=== PATIENT | female | born 1985 | race Caucasian/White ===

== ENCOUNTER 2021-02-12 13:30 | Emergency (ER) | payer BC ==
[2021-02-12] MEDS ORDERED: LORazepam 2 MG/ML SDV IVPUSH ONE (13:42)
[2021-02-12] MEDS ORDERED: Metoclopramide 10 MG/2 ML SDV IVPUSH ONE (13:42)
[2021-02-12] MEDS ORDERED: HYDROmorphone 0.5 MG/0.5 ML Syringe IVPUSH ONE (13:42)
[2021-02-12] MEDS ORDERED: Dextrose 5%-0.9% NaCl 1,000 ML IV SCH (13:45)
--- NOTE | 2021-02-12 13:45 | EDM.PDOC ---
ED HPI GENERAL MEDICAL PROBLEM - General Chief Complaint: Chest Pain Stated Complaint: [facility] Time Seen by Provider: 02/12/21 13:43 Source of Information: Reports: Patient, EMS History Limitations: Reports: No Limitations - History of Present Illness INITIAL COMMENTS - FREE TEXT/NARRATIVE: 35-year-old female presents to the ED per [facility] complaining of sudden onset of severe sharp stabbing pain in her left precordial chest rating through to her back and up into her left shoulder. Associated dyspnea and panic. She indicates that she suffers from generalized anxiety disorder and this has been aggravated lately by constant fighting with her who is considering divorce. Patient claims that she has a hole in her heart that cannot be repaired surgically and most likely does not need to be repaired surgically. There is some question as to whether or not she has a diathesis for blood clotting in her family. She herself has never had DVT or PE. O2 sats are 100% on room air. Patient appears to be quite anxious. She is very thin and heavily tanned. Paramedics did establish an IV but she did not receive any the medications. She was given aspirin 324 mg chewed Onset: Today, Sudden Onset Date: 02/12/21 Onset Time: 12:55 Duration: Minutes: Location: Reports: Chest Quality: Reports: Ache (Left upper anterior chest pain which is sharp stabbing rating towards the left shoulder.), Pressure, Stabbing Severity: Severe (Gregg stabbing 9 out of 10) Improves with: Reports: Rest Worsens with: Reports: Other Context: Reports: Other (New onset while at home). Denies: Activity, Exercise (Made slightly worse by deep breathing.), Lifting, Sick Contact, Trauma Associated Symptoms: Reports: Chest Pain, Cough, cough w sputum (Cough usually in the mornings from cigarette smoking.), Loss of Appetite, Malaise, Nausea/Vomiting (Nausea without vomiting), Shortness of Breath, Weakness. Denies: Confusion, Diaphoresis, Fever/Chills ( Brownish sputum occasionally), Headaches, Rash, Seizure, Syncope Treatments BELT WEAVER: Reports: Aspirin Other Treatments BELT WEAVER: 324mg aspirin given by EMS Left Chest Pain Score (Numeric/FACES): 8 - Related Data Allergies Allergy/AdvReac Type Severity Reaction Status Date / Time No Known Allergies Allergy Verified 02/12/21 13:41 Home Meds: Home Meds . [No Known Home Meds] 02/12/21 [History] Past Medical History Cardiovascular History: Reports: Other (See Below) (Says she has a hole in her heart presumably a small atrial septal defect that apparently does not need to be repaired surgically.) Psychiatric History: Reports: Anxiety (Relies anxiety disorder with panic attacks) Social & Family History - Tobacco Use Tobacco Use Status *Q: Current Every Day Tobacco User Tobacco Use Within Last Twelve Months: Cigarettes (1 pack/day) ED ROS GENERAL - Review of Systems Review Of Systems: See Below Constitutional: Reports: Decreased Appetite. Denies: Fever, Chills, Malaise, Weakness, Fatigue, Weight Loss HEENT: Reports: No Symptoms Respiratory: Reports: Shortness of Breath, Cough, Sputum (Smoker's cough.). Denies: Wheezing, Pleuritic Chest Pain, Hemoptysis ( Occasional sputum production) Cardiovascular: Reports: Chest Pain. Denies: Blood Pressure Problem (History of present illness), Claudication, Dyspnea on Exertion, Edema, Lightheadedness, Orthopnea, Palpitations Endocrine: Reports: Fatigue GI/Abdominal: Reports: No Symptoms : Reports: No Symptoms Musculoskeletal: Reports: No Symptoms Skin: Reports: No Symptoms Neurological: Reports: Dizziness, Weakness. Denies: Confusion, Headache, Numbness, Paresthesia, Pre-Existing Deficit, Seizure, Syncope, Tingling, Tremors, Trouble Speaking, Difficulty Walking, Change in Speech, Gait Disturbance Psychiatric: Reports: Anxiety Hematologic/Lymphatic: Reports: No Symptoms Immunologic: Reports: No Symptoms ED EXAM, GENERAL - Physical Exam Exam: See Below Exam Limited By: No Limitations General Appearance: Alert, WD/WN, Anxious, Mild Distress, Other (Temperature is 36.1 degrees. Heart rate is 95 and sinus. Respiratory to 16. Blood pressure 111/68. O2 sats 96 to 100% room air.) Eye Exam: Bilateral Eye: Normal Inspection (No blepharal pallor or scleral icterus.), PERRL Throat/Mouth: Normal Inspection, Other (Oropharynx is diffusely erythematous from cigarette smoking.). No: Normal Teeth Head: Atraumatic, Normocephalic Neck: Normal Inspection, Supple, Non-Tender, Full Range of Motion. No: Carotid Bruit, Lymphadenopathy (L), Lymphadenopathy (R) Respiratory/Chest: No Respiratory Distress, Lungs Clear, Normal Breath Sounds, No Accessory Muscle Use, Other (Mild chest wall tenderness on palpation of ribs). No: Respiratory Distress Cardiovascular: Normal Peripheral Pulses ( 3 4 and 5 left midclavicular line), Regular Rate, Rhythm, No Edema, No Gallop, No Murmur, No Rub Peripheral Pulses: 3+: Carotid (L), Carotid (R), Posterior Tibial (L), Posterior Tibial (R), Dorsalis Pedis (L), Dorsalis Pedis (R) GI/Abdominal: Normal Bowel Sounds, Soft, Non-Tender, No Organomegaly, No Abnormal Bruit, No Mass, Pelvis Stable Back Exam: Normal Inspection, Full Range of Motion. No: CVA Tenderness (L), CVA Tenderness (R) Extremities: Normal Inspection, Normal Range of Motion, Non-Tender, No Pedal E anahi, Other (Feet are excoriated in multiple areas over her dorsal toes and ankles and dorsal feet. She states has been working out in the garden barefoot. The feet are very dirty.) Neurological: Alert, Oriented, CN II-XII Intact, Normal Cognition Psychiatric: Anxious (Moderate Tremaine anxious) Skin Exam: Warm, Dry, Intact, Normal Color, No Rash #1 Interpretation EKG Date: 02/12/21 Time: 13:56 Rhythm: NSR Rate (Beats/Min): 76 [place]: Normal P-Wave: Enlarged QRS: Other (Sitter left atrial hypertrophy decreased voltage limb leads . There is Q-wave in V1 and near Q-wave in V2 and V3 combined with old anteroseptal myocardial infarction. There is also a Q-wave in aVL which is nonspecific.) ST-T: Other (Decreased voltage limb leads. Diffuse early repolarization pattern) QT: Normal EKG Interpretation Comments: Abnormal ECG Course - Vital Signs Last Recorded V/S: Last Vital Signs Temp 36.1 C 02/12/21 13:33 Pulse 95 02/12/21 13:33 Resp 16 02/12/21 13:33 BP 111/68 02/12/21 13:33 Pulse Ox 96 02/12/21 13:33 - Orders/Labs/Meds Orders: Active Orders 24 hr Category Date Time Status EKG Documentation Completion [RC] STAT Care 02/12/21 13:43 Active DRUG SCREEN, URINE [URCHEM] Stat Lab 02/12/21 13:55 Ordered URINALYSIS W/MICROSCOPIC [UA W/MICROSCOPIC] [URIN] Stat Lab 02/12/21 13:55 Ordered Dextrose 5%-0.9% NaCl [Dextrose 5%-Normal Saline] 1,000 Med 02/12/21 13:45 Active ml IV ASDIRECTED Medication Orders Dextrose/Sodium Chloride (Dextrose 5%-Normal Saline) 1,000 mls @ 150 mls/hr IV ASDIRECTED CLARY Last Admin: 02/12/21 14:13 Dose: 150 mls/hr Documented by: [email or web address] Labs: Laboratory Tests 02/12/21 02/12/21 02/12/21 Range/Units 14:12 14:12 14:12 WBC 5.87 (3.98-10.04) K/mm3 RBC 4.06 (3.98-5.22) M/mm3 Hgb 12.6 (11.2-15.7) gm/dl Hct 37.8 (34.1-44.9) % MCV 93.1 (79.4-94.8) fl MCH 31.0 (25.6-32.2) pg MCHC 33.3 (32.2-35.5) g/dl RDW Std Deviation 42.9 (36.4-46.3) fL Plt Count 377 H (182-369) K/mm3 MPV 8.6 L (9.4-12.3) fl Neut % (Auto) 55.3 (34.0-71.1) % Lymph % (Auto) 29.0 (19.3-51.7) % [place] % (Auto) 11.1 (4.7-12.5) % Eos % (Auto) 3.4 (0.7-5.8) Baso % (Auto) 0.9 (0.1-1.2) % Neut # (Auto) 3.25 (1.56-6.13) K/mm3 Lymph # (Auto) 1.70 (1.18-3.74) K/mm3 [place] # (Auto) 0.65 H (0.24-0.36) K/mm3 Eos # (Auto) 0.20 (0.04-0.36) K/mm3 Baso # (Auto) 0.05 (0.01-0.08) K/mm3 PT 10.3 (9.7-12.0) SECONDS INR 0.96 APTT 26.8 (21.7-31.4) SECONDS Sodium 144 (136-145) mEq/L Potassium 3.7 (3.5-5.1) mEq/L Chloride 110 H (98-107) mEq/L Carbon Dioxide 25 (21-32) mEq/L Anion Gap 12.7 (5-15) BUN 14 (7-18) mg/dL Creatinine 0.9 (0.55-1.02) mg/dL Est Cr Clr Drug Dosing 63.26 mL/min Estimated GFR (MDRD) > 60 (>60) mL/min BUN/Creatinine Ratio 15.6 (14-18) Glucose 138 H (70-99) mg/dL Calcium 8.3 L (8.5-10.1) mg/dL Magnesium 2.1 (1.8-2.4) mg/dL Total Bilirubin 0.4 (0.2-1.0) mg/dL AST 13 L (15-37) U/L ALT 18 (14-59) U/L Alkaline Phosphatase 55 (46-116) U/L CK-MB (CK-2) 1.7 (0-3.6) ng/ml Troponin I < 0.017 (0.00-0.056) ng/mL C-Reactive Protein 0.2 (<1.0) mg/dL Total Protein 6.1 L (6.4-8.2) g/dl Albumin 3.3 L (3.4-5.0) g/dl Globulin 2.8 gm/dL Albumin/Globulin Ratio 1.2 (1-2) Ethyl Alcohol 0.00 (0.00) gm% Meds: Medications Generic Name Dose Route Start Last Admin Trade Name Freq PRN Reason Stop Dose Admin Dextrose/Sodium Chloride 1,000 mls @ 150 mls/hr 02/12/21 13:45 02/12/21 14:13 Dextrose 5%-Normal Saline IV 150 mls/hr ASDIRECTED CLARY Administration Discontinued Medications Generic Name Dose Route Start Last Admin Trade Name Freq PRN Reason Stop Dose Admin Hydromorphone HCl 0.5 mg 02/12/21 13:42 02/12/21 14:13 Hydromorphone 0.5 Mg/0.5 Ml Syringe IVPUSH 02/12/21 13:43 0.5 mg ONETIME ONE Administration Lorazepam 0.5 mg 02/12/21 13:42 02/12/21 14:18 Lorazepam 2 Mg/Ml Sdv IVPUSH 02/12/21 13:43 0.5 mg ONETIME ONE Administration Metoclopramide HCl 5 mg 02/12/21 13:42 02/12/21 14:14 Metoclopramide 10 Mg/2 Ml Sdv IVPUSH 02/12/21 13:43 5 mg ONETIME ONE Administration - Radiology Interpretation Free Text/Narrative:: 35-year-old female presents to the ED per [facility] complaining of sudden onset of severe sharp stabbing pain in her left anterior chest rating up into her left shoulder. She identifies that she has a problem with generalized anxiety disorder with panic attacks. She indicates her anxiety level has been higher lately since she has been fighting with her on a daily basis and he is considering her mentioning divorce. She is a smoker a pack per day. She states she has a hole in her heart which is unclear and unverified for which there is no treatment. Sounds like she may have a small ASD that does not need to be repaired. She has no history of clotting disorder. Examination reveals good air entry throughout all lung wilson. O2 sats 100% on room air. She appears extremely anxious. Paramedics did administer 324 mg of aspirin chewed. Plan IV will be D5 normal saline at 150 mils per hour. Given Dilaudid 0.5 mg IV with Reglan 5 mg IV and Ativan 1 mg IV. Chest x-ray ECG and routine labs to include cardiac markers to be done. - Re-Assessments/Exams Free Text/Narrative Re-Assessment/Exam: 02/12/21 14:15 chest x-ray done portably reveals slightly hyperinflated lung wilson. Cardiac silhouette is normal. There is no pneumothorax or pleural effusion. Lung parenchyma are clear. ECG is suggestive of an old anteroseptal myocardial infarction and patient does verify that she has a history of previous methamphetamine use. 02/12/21 14:59 White count is normal at 5.87. Differential shows 55% neutrophils on the auto differential. Hemoglobin is 12.6 with hematocrit of 37.8 MCV is normal at 93.1. Platelet count 377,000 slightly elevated. PT is 10.3 with an INR of 0.96 PTT is 26.8. 02/12/21 15:05 she reports that she is feeling much improved. Pain is pretty well gone. She is able to take a deep breath now without significant pain. Still awaiting the rest of her labs i.e. chemistry and troponin. 02/12/21 15:26 Sodium is 144 with a potassium of 3.7. Chloride is slightly elevated at 110. Bicarb 25 with an anion gap of 12.7. BUN is 14 with a creatinine of 0.9 and a GFR greater than 60. Glucose is 138. Calcium 8.3 slightly low. Magnesium normal at 2.1. Liver function is normal. CK-MB is 1.7 and troponin is less than 0.017. C-reactive protein is 0.2. Total protein 6.1 with a slightly low albumin fraction of 3.3. Blood alcohol is 0.00. Chemistry is normal. Patient is feeling improved and therefore will be discharged home. Departure - Departure Time of Disposition: 15:26 Disposition: Home, Self-Care 01 Reason for Transfer *Q: Other Condition: Fair Clinical Impression: Non-cardiac chest pain, Pleuritic chest pain, Anxiety Instructions: Pleurodynia Forms: ED Department Discharge Additional Instructions: Evaluation in the emergency room today in regards to development of sudden onset of severe left sided chest pain rating up into the left shoulder. You were brought to the emergency room for evaluation by a local ambulance service. Chest x-ray was within normal limits showing no evidence of any pneumothorax or hole in the lung with an air leak. No signs of pneumonia or infection. Heart size and shape are normal. Lab work reveals no evidence of heart related illness. No signs of infection. Chest pain can be from spasm of muscles between ribs which is sharp and stabbing. It can be caused by severe anxiety. It can be caused by a low-grade viral inflammation of the lung lining called pleurodynia. All serious disease processes were ruled out today. Chest pain may recur but will usually be less severe. It is okay to use Motrin 600 mg or Aleve 2 tablets every 8 hours for pain relief as needed. Sepsis Event Note (ED) - Evaluation Sepsis Screening Result: No Definite Risk - Focused Exam Vital Signs: Vital Signs Temp Pulse Resp BP Pulse Ox 02/12/21 13:33 36.1 C 95 16 111/68 96 - My Orders Last 24 Hours: My Active Orders 02/12/21 13:43 EKG Documentation Completion [RC] STAT 02/12/21 13:45 Dextrose 5%-0.9% NaCl [Dextrose 5%-Normal Saline] 1,000 ml IV ASDIRECTED 02/12/21 13:55 DRUG SCREEN, URINE [URCHEM] Stat URINALYSIS W/MICROSCOPIC [UA W/MICROSCOPIC] [URIN] Stat - Assessment/Plan Last 24 Hours: My Active Orders 02/12/21 13:43 EKG Documentation Completion [RC] STAT 02/12/21 13:45 Dextrose 5%-0.9% NaCl [Dextrose 5%-Normal Saline] 1,000 ml IV ASDIRECTED 02/12/21 13:55 DRUG SCREEN, URINE [URCHEM] Stat URINALYSIS W/MICROSCOPIC [UA W/MICROSCOPIC] [URIN] Stat
--- NOTE | 2021-02-12 14:39 | CR ---
Chest: Portable view of the chest was obtained. Comparison: No prior chest imaging is available. Heart size and mediastinum are normal. Lungs are clear with no acute parenchymal change. Bony structures show minimal scoliosis within the spine. Impression: 1. Nothing acute is seen. Diagnostic code #2
== END 2021-02-12 15:35 | disposition home or self-care (01) ==
LOC: JD.ED 13:30
DX: R07.2 Precordial pain (principal); R07.81 Pleurodynia; F41.9 Anxiety disorder, unspecified; Z72.0 Tobacco use
CPT/HCPCS: 36415; 71045; 80053; 80306; 80307; 81001; 82553; 83735; 84484; 85025; 85610; 85730; 86140; 93005; 96374; 96375; 99285; J1170; J2060; J2765; J7042; 93010; 99284

== ENCOUNTER 2021-07-28 04:40 | Emergency (ER) | payer BC ==
--- NOTE | 2021-07-28 05:07 | EDM.PDOC ---
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 Hardin is a 36-year-old woman who now presents the ED stating that she is approximately 6 weeks gestation, , LMP some time in February 2021, s/p one OB sound on 07/22/2021 that reads: 1. Single intrauterine fetus currently cephalic in presentation dates as noted above. (15w 3d, CHRISSY 01/16/2022) 2. Fibroids within the uterus are noted. 2 largest fibroids are measured above. 3. Complete placenta previa is noted. The ultrasound places the patient at 16w 3d today. She states that she has been experiencing crampy right pelvic pain on and off for the past 2 days, but constant since 01:00 this morning. No recent spotting or bleeding. She has taken OTC acetaminophen, which has not really helped. No prior similar pain with this . At triage, the patient was found to be hemodynamically stable, afebrile, saturating 99% on room air. She appears to be comfortable, in no acute distress. The patient states that she has been experiencing constipation with this , otherwise, the patient denies having a recent fever, chills, sore throat, ear pain, nasal or sinus congestion, cough, dyspnea, chest pain, palpitations, nausea, vomiting, diarrhea, abdominal pain, urinary symptoms, recent weight gain or weight loss, recent bloody bowel movements or black bowel movements, recent joint aches, headaches, or rashes. The patient's PCP is Deja Avalos NP. Her CUT AND COVER LINE WORKER is Dr. Mckenzie Santa. Her Bricklayer Apprentice/Oncologist is Dr. Nathaniel Belcher. Her Biologist Aide is Dr. Wai Brush. She does not recall the name of her Director Recreation, at [facility]. She does not recall the name of her Neurologist, at [facility]. She has not received a COVID vaccination, nor an influenza vaccination this season. 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: Fibroids : 1 Para: 0 Psychiatric History: Reports: Anxiety (untreated), Panic Attack - Infectious Disease History Infectious Disease History: Reports: Novel Coronavirus (dx'd Feb 2020) - Past Surgical History HEENT Surgical History: Reports: Oral Surgery (dental extractions) Social & Family History - Tobacco Use Tobacco Use Status *Q: Current Every Day Tobacco User Years of Tobacco use: 23 Packs/Tins Daily: 0.5 Packs/Tins Daily Comment: Down from 3 ppd Tobacco Use Comment: Started smoking 1998 - Caffeine Use Caffeine Use: Reports: None - Alcohol Use Alcohol Use History: No - Recreational Drug Use Recreational Drug Use: Yes Drug Use in Last 12 Months: Yes Recreational Drug Type: Reports: Marijuana/Hashish (last smoked around January 2021), Methamphetamine (last smoked 2019) - Living Situation & Occupation Living situation: Reports: , with Spouse Occupation: Unemployed ED ROS GENERAL - Review of Systems Review Of Systems: Comprehensive ROS is negative, except as noted in HPI. ED EXAM - Physical Exam Exam: See Below Exam Limited By: No Limitations General Appearance: Alert, WD/WN, No Apparent Distress Eye Exam: Bilateral Eye: EOMI, Normal Inspection Ears: Normal External Exam, Hearing Grossly Normal Nose: Normal Inspection Throat/Mouth: Normal Inspection, Normal Lips, Normal Voice, No Airway Compromise Head: Atraumatic, Normocephalic Neck: Normal Inspection, Full Range of Motion Respiratory/Chest: No Respiratory Distress, Lungs Clear, Normal Breath Sounds, No Accessory Muscle Use Cardiovascular: Normal Peripheral Pulses, Regular Rate, Rhythm, No Edema, No Gallop, No JVD, No Murmur, No Rub GI/Abdominal Exam: Normal Bowel Sounds, Soft, Non-Tender (including the RLQ/right pelvis), No Distention, No Abnormal Bruit, No Mass, Other (Gravid uterus consistent with dates) Back Exam: Normal Inspection, Full Range of Motion, NT Extremities: Normal Inspection, Normal Range of Motion, No Pedal Edema, Normal Capillary Refill Neurological: Alert, Oriented, Normal Cognition, No Motor/Sensory Deficits Psychiatric: Normal Affect Skin Exam: Warm, Dry, Intact, Normal Color, No Rash Course - Vital Signs Last Recorded V/S: Last Vital Signs Temp 36.4 C 07/28/21 04:49 Pulse 91 07/28/21 04:49 Resp 15 07/28/21 04:49 BP 111/67 07/28/21 04:49 Pulse Ox 99 07/28/21 04:49 - Orders/Labs/Meds Orders: Active Orders 24 hr Category Date Time Status OB Ltd 1 or More Fetus [US] Stat Exams 07/28/21 05:03 Taken Labs: Laboratory Tests 07/28/21 07/28/21 Range/Units 04:55 05:19 HCG, Quant 61735.0 mIU/mL Urine Color Yellow (Yellow) Urine Appearance Clear (Clear) Urine pH 6.0 (5.0-8.0) Ur Specific [place] 1.025 (1.005-1.030) Urine Protein Negative (Negative) Urine Glucose (UA) Negative (Negative) Urine Ketones Negative (Negative) Urine Occult Blood Trace-intact H (Negative) Urine Nitrite Negative (Negative) Urine Bilirubin Negative (Negative) Urine Urobilinogen 0.2 (0.2-1.0) Ur Leukocyte Esterase Negative (Negative) Urine RBC 0-5 (0-5) /hpf Urine WBC 0-5 (0-5) /hpf Ur Squamous Epith Cells 0-5 (0-5) /hpf Urine Bacteria Few (FEW) /hpf Urine Mucus Few (FEW) /hpf - Re-Assessments/Exams Free Text/Narrative Re-Assessment/Exam: 07/28/21 05:05 I have ordered a quantitative hCG, urinalysis, and transvaginal ultrasound. 07/28/21 06:32 The patient's quantitative hCG is 34,805. Her urinalysis is unremarkable. Obstetric ultrasound is read by [facility] as: Viable beltre intrauterine gestation in a variable position. Average ultrasound age of 16 weeks and 2 days. Complete placenta previa. Uterine fibroids. 07/28/21 06:39 Test results discussed with the patient and her . The patient was unaware of the complete placenta previa, which had been reported on the ultrasound from 07/22/2021. The patient stated that they intend to call Dr. Santa's office on Thursday morning, because they have not heard back from her regarding the ultrasound report. The patient reported that they had been told by the construction technician that it was uterine fibroids that were covering the canal, when in fact, while the patient has leiomyomas, it is the placenta that is covering the internal cervical os, not fibroids. I explained that it was improper for the construction technician to have explained the ultrasound results, rather, test results, diagnoses, prognoses, and treatment options are to be explained by the physician. I explained to the patient that complete placenta previa increases her risk for prepartum bleeding, and may mean that she will need to have a section, but that more details can be given by Dr. Santa in that regard. That being said, the patient's right pelvic pain appears to be due to round ligament pain. I recommended acetaminophen as treatment. Departure - Departure Time of Disposition: 06:46 Disposition: Home, Self-Care 01 Condition: Good Clinical Impression: Round ligament pain, Second trimester , Complete placenta previa nos or without hemorrhage, second trimester - Discharge Information *PRESCRIPTION DRUG MONITORING PROGRAM REVIEWED*: Not Applicable *COPY OF PRESCRIPTION DRUG MONITORING REPORT IN PATIENT MIRANDA: Not Applicable Referrals: Deja Avalos NP [Primary Care Provider] - Mckenzie Santa MD [Physician] - Nathaniel Belcher MD [Ordering Only Provider] - Racquel Brush MD [Ordering Only Provider] - Forms: ED Department Discharge Additional Instructions: You were seen in the emergency room after experiencing 2 days of intermittent right pelvic pain, without spotting, in the setting of a second trimester . Work-up in the ER included a quantitative hCG, urinalysis, and an obstetric ultrasound. Your quantitative hCG is 34,805. Your urinalysis was unremarkable. You do not have a urinary tract infection. The ultrasound indicated a 16-week 2-day . You have uterine fibroids, but you also have complete placenta previa = the placenta is completely covering the canal. Complete placenta previa increases the risk of your developing bleeding during , and may also mean that you need to have a section, however, greater details can be explained when you meet with your Informatica Developer, Dr. Mckenzie Santa. Based on your history, physical exam, and ER tests, the cause of your pain is most likely due to "round ligament pain" = pain from a ligament that your uterus is attached to, that gets stretched as your uterus increases in size. You may take [id number] acetaminophen (Tylenol) as needed for discomfort. Please follow-up with your Informatica Developer, Dr. Mckenzie Santa, at the next available appointment. If any other problems, please do not hesitate to return to the ER. Sepsis Event Note (ED) - Focused Exam Vital Signs: Vital Signs Temp Pulse Resp BP Pulse Ox 07/28/21 04:49 36.4 C 91 15 111/67 99 - My Orders Last 24 Hours: My Active Orders 07/28/21 05:03 OB Ltd 1 or More Fetus [US] Stat - Assessment/Plan Last 24 Hours: My Active Orders 07/28/21 05:03 OB Ltd 1 or More Fetus [US] Stat
--- NOTE | 2021-07-29 14:17 | US ---
EXAM: US OB LIMITED LOCATION: [facility] DATE/TIME: 07/28/2021 5:34 AM INDICATION: complicated by abdominal or pelvic pain; lower; second trimester (14 weeks 0 days to 27 weeks 6 days); gestational age or lmp: 16w2d; COMPARISON: None available. TECHNIQUE: Transabdominal and endovaginal ultrasound. FINDINGS: Single living fetus, variable presentation. HEART RATE: 152 bpm. SDP 4.0 cm. VIJAYA 12.6 cm PLACENTA: Anterior. The placenta covers the internal cervical os consistent with a complete previa. Follow-up study at approximately 20 weeks gestation is recommended to assess morphology and placental location. CERVIX: Obscured. There are multiple masses in the maternal uterus consistent with uterine leiomyomas. The largest 2 measures 6 x 6.1 x 6.3 cm and 5.9 x 6.3 x 5.8 cm. BIOMETRY: Biparietal Diameter: 3.4 cm, 16 weeks, the days Head Circumference: 12.3 cm, spleen weeks, 2 days Abdominal Circumference: 10.5 cm, 16 weeks, the days Femur Length: 1.8 cm, 15 weeks, or days Estimated Weight: 141 g EFW Percentile: 24% Heart Rate: 152 bpm Cervical Length: Visualized EDC by First US exam: = EDC by This US exam: 01/10/2022 Composite Age by First US: - weeks, - days Composite Age by This US: 16 weeks, 2 days IMPRESSION: 1. Single intrauterine gestation. 2. Anterior placenta with complete previa. Follow-up later in is recommended to assess placental location. 3. Multiple leiomyomas in the maternal uterus including at least 2 large myomas visualized measuring approximately 6 cm in diameter each. NOTE: ABNORMAL REPORT THE DICTATION ABOVE DESCRIBES AN ABNORMALITY FOR WHICH FOLLOW-UP IS NEEDED SIGNED BY: Michoacano Schreiber MD 07/29/2021 1:05 PM [facility]
== END 2021-07-28 07:02 | disposition home or self-care (01) ==
LOC: JD.ED 04:40
DX: O44.02 Complete placenta previa NOS or without hemorrhage, second trimester (principal); O99.332 Smoking (tobacco) complicating pregnancy, second trimester; F17.210 Nicotine dependence, cigarettes, uncomplicated; Z3A.16 16 weeks gestation of pregnancy
CPT/HCPCS: 36415; 76815; 76815-26; 81001; 84702; 99284-25

== ENCOUNTER 2025-02-01 08:12 | Emergency (ER) | payer BC ==
[2025-02-01 08:35] LABS: BASOPHILS ABSOLUTE AUTO 0.1 K/mm3 (0.0-0.2); BASOPHILS PERCENT AUTO 0.7 % (0.0-1.0); EOSINOPHILS ABSOLUTE AUTO 0.2 K/mm3 (0.0-0.4); EOSINOPHILS PERCENT AUTO 1.4 % (0.0-6.0); IMMATURE GRAN ABSOLUTE AUTO 0.05 K/mm3 (0.00-0.05); IMMATURE GRAN PERCENT AUTO 0.4 % (0.0-0.4); LYMPHOCYTES ABSOLUTE AUTO 2.1 K/mm3 (1.0-4.8); LYMPHOCYTES PERCENT AUTO 18.6 % (24.0-44.0); MEAN PLATELET VOLUME 9.0 fl (9.4-12.3); MONOCYTES ABSOLUTE AUTO 1.0 K/mm3 (0.0-0.8); MONOCYTES PERCENT AUTO 9.0 % (0.0-8.0); NEUTROPHILS ABSOLUTE AUTO 7.8 K/mm3 (1.8-7.7); NEUTROPHILS PERCENT AUTO 69.9 % (41.0-71.0); NRBC ABSOLUTE 0.00 (0.00-0.02); NRBC PERCENT 0.0 % (0.0-0.2); PLATELET COUNT,PLT 381 K/mm3 (150-400); RED BLOOD CELL COUNT 4.53 M/mm3 (4.10-5.30); WHITE BLOOD CELL COUNT,WBC 11.22 K/mm3 (3.9-11.3)
[2025-02-01] MEDS: Ketorolac 30 MG/ML SDV IVPUSH ONE (08:47)
[2025-02-01] MEDS: LORazepam 2 MG/ML SDV IVPUSH ONE (08:50)
[2025-02-01 08:51] LABS: BUPRENORPHINE SCREEN,URINE NEGATIVE (CUTOFF=10); METHADONE SCREEN, URINE NEGATIVE (CUTOFF=200); METHAMPHETAMINES SCREEN, URINE PRESUMPTIVE POSITIVE (CUTOFF=500); OXYCODONE SCREEN,URINE NEGATIVE (CUT0FF=100); THC SCREEN,URINE 20 NG/ML PRESUMPTIVE POSITIVE (CUTOFF=50)
[2025-02-01 08:53] LABS: AMPHETAMINES SCREEN, URINE PRESUMPTIVE POSITIVE (CUTOFF=500)
[2025-02-01 09:02] LABS: A/G RATIO 1.3 (1-2); ALANINE AMINOTRANSFERASE,ALT 20.0 U/L (14-59); ASPARTATE AMNIOTRANSFERASE,AST 15.0 U/L (15-37); BILIRUBIN TOTAL 0.8 mg/dL (0.2-1.0); BLOOD UREA NITROGEN,BUN 7.0 mg/dL (7-18); CARBON DIOXIDE,CO2 27.0 mEq/L (21-32); CHLORIDE,CL 103.0 mEq/L (98-107); CREATINE KINASE,CK 142.0 U/L (26-192); CREATININE 0.7 mg/dL (0.55-1.02); EST CRCL DRUG DOSING (CG) 78.27 mL/min; ESTIMATED GFR 113.0 mL/min (>60); GLUCOSE RANDOM 89.0 mg/dL (70-99); POTASSIUM,K 3.4 mEq/L (3.5-5.1); PROTEIN TOTAL,TP 6.8 g/dl (6.4-8.2); SODIUM,NA 139.0 mEq/L (136-145)
== END 2025-02-01 09:15 | disposition home or self-care (01) ==
LOC: JD.ED 08:12
DX: R07.89 Other chest pain (principal); M94.0 Chondrocostal junction syndrome [Tietze]; F15.10 Other stimulant abuse, uncomplicated; F43.9 Reaction to severe stress, unspecified; E78.00 Pure hypercholesterolemia, unspecified; F17.210 Nicotine dependence, cigarettes, uncomplicated; Z86.16 Personal history of COVID-19
CPT/HCPCS: 36415; 71045; 80053; 80306; 81025; 82550; 83690; 83735; 85025; 93005; 96374; 96375; 99285; J1885; J2060; J7030

== ENCOUNTER 2025-06-28 15:09 | Emergency (ER) | payer BC ==
[2025-06-28 16:07] LABS: BASOPHILS ABSOLUTE AUTO 0.1 K/mm3 (0.0-0.2); BASOPHILS PERCENT AUTO 0.7 % (0.0-1.0); EOSINOPHILS ABSOLUTE AUTO 0.1 K/mm3 (0.0-0.4); EOSINOPHILS PERCENT AUTO 1.3 % (0.0-6.0); IMMATURE GRAN ABSOLUTE AUTO 0.03 K/mm3 (0.00-0.05); IMMATURE GRAN PERCENT AUTO 0.3 % (0.0-0.4); LYMPHOCYTES ABSOLUTE AUTO 2.7 K/mm3 (1.0-4.8); LYMPHOCYTES PERCENT AUTO 26.9 % (24.0-44.0); MEAN PLATELET VOLUME 8.4 fl (9.4-12.3); MONOCYTES ABSOLUTE AUTO 0.9 K/mm3 (0.0-0.8); MONOCYTES PERCENT AUTO 8.6 % (0.0-8.0); NEUTROPHILS ABSOLUTE AUTO 6.3 K/mm3 (1.8-7.7); NEUTROPHILS PERCENT AUTO 62.2 % (41.0-71.0); NRBC ABSOLUTE 0.00 (0.00-0.02); NRBC PERCENT 0.0 % (0.0-0.2); PLATELET COUNT,PLT 384 K/mm3 (150-400); RED BLOOD CELL COUNT 4.48 M/mm3 (4.10-5.30); WHITE BLOOD CELL COUNT,WBC 10.08 K/mm3 (3.9-11.3)
[2025-06-28 16:37] LABS: A/G RATIO 1.2 (1-2); ALANINE AMINOTRANSFERASE,ALT 14.0 U/L (14-59); ASPARTATE AMNIOTRANSFERASE,AST 13.0 U/L (15-37); BILIRUBIN TOTAL 0.4 mg/dL (0.2-1.0); BLOOD UREA NITROGEN,BUN 13.0 mg/dL (7-18); CARBON DIOXIDE,CO2 28.0 mEq/L (21-32); CHLORIDE,CL 105.0 mEq/L (98-107); CREATININE 0.9 mg/dL (0.55-1.02); EST CRCL DRUG DOSING (CG) 57.37 mL/min; ESTIMATED GFR 83.0 mL/min (>60); GLUCOSE RANDOM 91.0 mg/dL (70-99); POTASSIUM,K 3.6 mEq/L (3.5-5.1); PROTEIN TOTAL,TP 6.9 g/dl (6.4-8.2); SODIUM,NA 140.0 mEq/L (136-145)
[2025-06-28 16:43] LABS: ETHANOL BLOOD MEDICAL 0.0 gm% (0.00)
== END 2025-06-28 18:00 | disposition home or self-care (01) ==
LOC: JD.ED 15:09
DX: Z02.89 Encounter for other administrative examinations (principal); Z86.16 Personal history of COVID-19
CPT/HCPCS: 36415; 80053; 80143; 80179; 80307; 84703; 85025; 93005; 93010; 99283